=== PATIENT | female | born 1995 | race Caucasian/White ===

== ENCOUNTER 2017-03-06 23:13 | Emergency (ER) | payer OTHER ==
--- NOTE | 2017-03-07 00:05 | PDOC ---
History of Present Illness - General Chief Complaint: Injury Stated Complaint: ARM INJURY Time Seen by Provider: 03/06/17 23:39 History Source: Patient Exam Limitations: No Limitations - History of Present Illness Initial Comments: 03/07/17 00:04 21-year-old female presents to the emergency department complaining of pain to the right elbow. Patient states while she was ice-skating, she loss of balance and fell on her right elbow. Patient denies any head injuries, headache, dizziness, lightheadedness, facial pain, neck pain, back pain, chest pain, shortness of breath, abdominal pains, extremity numbness or tingling sensation. Pain to the right elbow is described as 5/10 dull nonradiating intermittent discomfort. The pain is exacerbated on movement and alleviated at rest. Patient denies any wrist or shoulder pain. Patient denies any other injuries. Occurred: reports: just prior to arrival Past History - Past Medical History Allergies/Adverse Reactions: Allergies Allergy/AdvReac Type Severity Reaction Status Date / Time No Known Allergies Allergy Verified 03/06/17 23:46 COPD: No Other medical history: denies - Suicide/Smoking/Psychosocial Hx Smoking History: Never smoked Review of Systems - Review of Systems Able to Perform ROS?: Yes Comments:: 03/07/17 00:05 CONSTITUTIONAL: Absent: fever, chills, diaphoresis, generalized weakness, malaise, loss of appetite HEENT: Absent: rhinorrhea, nasal congestion, throat pain, throat swelling, difficulty swallowing, mouth swelling, ear pain, eye pain, visual Changes CARDIOVASCULAR: Absent: chest pain, loss of consciousness, palpitations, irregular heart rate, peripheral edema RESPIRATORY: Absent: cough, shortness of breath, dyspnea with exertion, orthopnea, wheezing, stridor, hemoptysis GASTROINTESTINAL: Absent: abdominal pain, abdominal distension, nausea, vomiting, diarrhea, constipation, melena, hematochezia GENITOURINARY: Absent: dysuria, frequency, urgency, hesitancy, hematuria, flank pain, genital pain MUSCULOSKELETAL: Right elbow pain Absent: myalgia, arthralgia, joint swelling SKIN: Absent: rash, itching, pallor Is the patient limited Syriac proficient: No *Physical Exam - Vital Signs Last Vital Signs Temp Pulse Resp BP Pulse Ox 98.9 F 95 H 18 119/75 5 L 03/06/17 23:42 03/06/17 23:42 03/06/17 23:42 03/06/17 23:42 03/06/17 23:42 - Physical Exam Comments: 03/07/17 00:05 GENERAL: Well developed, well nourished. Awake and alert. No acute distress. HEENT: Normocephalic, atraumatic. PERRLA, EOMI. No conjunctival pallor. Sclera are non- icteric. Moist mucous membranes. Oropharynx is clear. NECK: Supple. Full ROM. No JVD. Carotid pulses 2+ and symmetric, without bruits. No thyromegaly. No lymphadenopathy. MUSCULOSKELETAL Normal range of motion at all joints. No bony deformities or tenderness. No CVA tenderness. EXTREMITIES: No cyanosis. No clubbing. No edema. No calf tenderness. SKIN: Warm and dry. Normal capillary refill. No rashes. No jaundice. Right elbow Decreased R.O.M./pain +slight swelling Neg obv deformities Right wrist 2+radial pulse neg obv deformity neg pain on palp Right shoulder F.R.O.M. ED Treatment Course - RADIOLOGY Radiology Studies Ordered: Category Date Time Status ELBOW-RIGHT [RAD] Stat Radiology 03/06/17 23:38 Ordered Radiograph Interpretation: 03/07/17 00:07 Right elbow xray: neg *DC/Admit/Observation/Transfer Diagnosis at time of Disposition: Contusion of right elbow Qualifiers: Encounter type: initial encounter Qualified Code(s): S50.01XA - Contusion of right elbow, initial encounter - Discharge Dispostion Condition at time of disposition: Stable Admit: No - Referrals Referrals: Mukesh Muller MD [Staff Physician] - - Patient Instructions Printed Discharge Instructions: DI for Contusion Additional Instructions: Ice; 20 mins on alternating with 20 mins off for 48 hours while awake. Rest Elevate Follow up with your orthopedic surgeon or the one listed on the discharge form. Return to the ER for severe/persistent/worsening symptoms, extremity numbness/ tingling sensation. - Post Discharge Activity
[2017-03-07 03:49] VITALS: BP 119/75; PULSE 95; TEMP 98.9; BMI 24.7
--- NOTE | 2017-03-07 07:44 | PDOC ---
Patient Follow-up (Call Back) - Post ED Follow - Up Condition at time of discharge: Stable Disposition at time of original discharge: HOME Reason for Call Back: Radiology (Patient with x-ray reread by Dr. Aly for posterior and anterior fat pad elevation attempted to call patient at phone number [phone], patient was unavailable her cell number was given to us by her sister her cell number is [phone] message left awaiting patient called back.)
--- NOTE | 2017-03-09 12:33 | PDOC ---
Patient Follow-up (Call Back) - Post ED Follow - Up Condition at time of discharge: Stable Disposition at time of original discharge: HOME - Disposition Additional Instructions/Notes: I called and spoke with pt regarding X-ray read showing + fat pad. Pt reports improved but persistent pain in her elbow. Pt instructed to return to ER immediately for re-evaluation and possible orthopedics consultation. Pt expresses understanding and states that she will come back to ER immediately.
== END 2017-03-07 02:18 | disposition home or self-care (01) ==
LOC: JER 23:13
DX: S50.01XA Contusion of right elbow, initial encounter (principal); W00.0XXA Fall on same level due to ice and snow, initial encounter; Y93.51 Activity, roller skating (inline) and skateboarding; Y92.330 Ice skating rink (indoor) (outdoor) as the place of occurrence of the external cause; Y99.8 Other external cause status
CPT/HCPCS: 73070-TC-RT; 99282-25

== ENCOUNTER 2017-03-09 13:49 | Emergency (ER) | payer SELFPAY ==
[2017-03-09 14:05] VITALS: BP 119/68; PULSE 76; TEMP 98.7; BMI 24.7
--- NOTE | 2017-03-09 15:21 | PDOC ---
History of Present Illness - General Chief Complaint: Pain, Acute Stated Complaint: REVISIT Time Seen by Provider: 03/09/17 14:48 History Source: Patient Exam Limitations: No Limitations - History of Present Illness Initial Comments: 03/09/17 17:52 CHIEF COMPLAINT: Was called back by Emelia for right elbow fat pad on x-ray HISTORY OF PRESENT ILLNESS: Patient is a 21-year-old female with right elbow pain status post injury was seen in the emergency department on [id number] x-ray was initially negative for acute fracture however on reread there was fat periods noted to anterior and posterior elbow. I called patient back the next day after official reading was in an patient stated she had pain with supposed to return yesterday for posterior arm splint. Patient returned today and reports that pain has resolved. I called orthopedics spoke to Dr. Dominguez who states that if patient has no pain she does not require splinting at this time can follow up as outpatient in office. 03/09/17 17:53 Occurred: reports: last week Severity: reports: moderate Extremity Pain Location - Extremity Pain Location Extremity Pain Locations: right: elbow Past History - Past Medical History Allergies/Adverse Reactions: Allergies Allergy/AdvReac Type Severity Reaction Status Date / Time No Known Allergies Allergy Verified 03/09/17 14:03 Home Medications: Ambulatory Orders NK [No Known Home Medication] 03/07/17 COPD: No - Suicide/Smoking/Psychosocial Hx Smoking History: Never smoked Hx Alcohol Use: Yes (occasionally) Review of Systems - Review of Systems Constitutional: No: Symptoms Reported Musculoskeletal: No: Joint Pain, Joint Swelling, Muscle Pain, Muscle Weakness, Joint Stiffness Integumentary: No: Symptoms Reported, Bruising, Erythema Neurological: No: Paresthesia, Tingling, Tremors Hematologic/Lymphatic: No: Symptoms Reported All Other Systems: Reviewed and Negative *Physical Exam - Vital Signs Last Vital Signs Temp Pulse Resp BP Pulse Ox 98.7 F 76 68 H 119/68 100 03/09/17 14:04 03/09/17 14:04 03/09/17 14:04 03/09/17 14:04 03/09/17 14:04 - Physical Exam General Appearance: Yes: Appropriately Dressed. No: Apparent Distress Neck: negative: Tender lateral, Tender midline Respiratory/Chest: positive: Lungs Clear, Normal Breath Sounds. negative: Respiratory Distress, Accessory Muscle Use Cardiovascular: positive: Regular Rhythm, Regular Rate Lymphatic: negative: Adenopathy Musculoskeletal: positive: Normal Inspection Extremity: positive: Normal Capillary Refill, Normal Inspection, Normal Range of Motion, Pelvis Stable. negative: Tender, Swelling, Erythema, Inflammation Integumentary: positive: Normal Color, Dry. negative: Erythema, Swelling, Ecchymosis, Bruising Neurologic: positive: Alert, Normal Mood/Affect, Normal Response, Motor Strength 5/5 Medical Decision Making - Medical Decision Making 03/09/17 17:55 A/P: Patient here, call back for anterior posterior fat pads noted on assessment. Patient rechecked and denies any pain. Spoke to Dr. Dominguez, if there is no pain, no splinting is required. Can follow up as outpatient. I discussed the physical exam findings, ancillary test results and final diagnoses with the patient. I answered all of the patient's questions. The patient was satisfied with the care received and felt comfortable with the discharge plan and treatment plan. The patient will call to arrange follow-up and will return to the Emergency Department with any new, persistent or worsening symptoms. *DC/Admit/Observation/Transfer Diagnosis at time of Disposition: Elbow injury Qualifiers: Encounter type: initial encounter Laterality: right Qualified Code(s): S59.901A - Unspecified injury of right elbow, initial encounter - Discharge Dispostion Disposition: HOME Condition at time of disposition: Good Admit: No - Referrals Referrals: STAFF,NOT ON [Primary Care Provider] - Moses Dominguez MD [Staff Physician] - - Patient Instructions Additional Instructions: Please follow up in the office of Dr. Dominguez for evaluation. - Post Discharge Activity
== END 2017-03-09 15:26 | disposition home or self-care (01) ==
LOC: JERFT 13:49
DX: S59.801D Other specified injuries of right elbow, subsequent encounter (principal); V00.211D Fall from ice-skates, subsequent encounter
CPT/HCPCS: 99281-25